=== PATIENT | male | born 2000 | race Caucasian/White ===

== ENCOUNTER 2022-03-17 19:22 | Emergency (ER) | payer MEDICAID ==
[2022-03-17] MEDS ORDERED: Bupivacaine PF 0.5% 30 ML VIAL ONE (20:11)
[2022-03-17] MEDS ORDERED: CEFAZOLIN 2 GM VIAL ONE (21:46)
[2022-03-17] MEDS ORDERED: Bacitracin 1 PK ONE (22:47)
[2022-03-17] MEDS ORDERED: Ketorolac Tromethamine 30 MG/ML VIAL ONE (22:52)
== END 2022-03-17 23:10 | disposition home or self-care (01) ==
LOC: CSHERS 19:22
DX: S62.634A Displaced fracture of distal phalanx of right ring finger, initial encounter for closed fracture (principal); F17.290 Nicotine dependence, other tobacco product, uncomplicated; W24.0XXA Contact with lifting devices, not elsewhere classified, initial encounter
CPT/HCPCS: 96365; 96372; 96375; J1885; S0020

== ENCOUNTER 2022-03-31 12:41 | Emergency (ER) | payer MEDICAID | END 2022-03-31 13:53 | disposition home or self-care (01) | LOC: CSHERS 12:41 | DX: S62.634D Displaced fracture of distal phalanx of right ring finger, subsequent encounter for fracture with routine healing (principal); F17.290 Nicotine dependence, other tobacco product, uncomplicated; X58.XXXD Exposure to other specified factors, subsequent encounter ==